=== PATIENT | female | born 1955 | race Caucasian/White ===

== ENCOUNTER → 2017-07-14 | Outpatient (CLI) | payer OTHER | LOC: FIMAGING 07:54 | PROVIDERS: ATTEND Obstetrics & Gynecology Gynecology | DX: Z12.31 Encounter for screening mammogram for malignant neoplasm of breast (principal) | CPT/HCPCS: G0202 ==

== ENCOUNTER → 2017-09-24 | Outpatient (CLI) | payer OTHER | LOC: FIMAGING 08:51 | PROVIDERS: ATTEND Physical Medicine & Rehabilitation | DX: Z13.820 Encounter for screening for osteoporosis (principal); M85.89 Other specified disorders of bone density and structure, multiple sites ==

== ENCOUNTER → 2018-09-30 | Outpatient (CLI) | payer OTHER | LOC: FIMAGING 15:00 | PROVIDERS: ATTEND Obstetrics & Gynecology Gynecology | DX: Z12.31 Encounter for screening mammogram for malignant neoplasm of breast (principal) ==

== ENCOUNTER → 2018-10-14 | Outpatient (CLI) | payer OTHER | LOC: FIMAGING 12:53 | PROVIDERS: ATTEND Physician Assistant Medical | DX: N63.23 Unspecified lump in the left breast, lower outer quadrant (principal) ==

== ENCOUNTER → 2018-11-02 | Day surgery (SDC) | payer OTHER ==
[~2018-11-02] MED LIST: BUPIVACAINE 0.5% 30 ML SDV ONE; LIDOCAINE 1% 300 MG/30 ML SDV ONE; THROMBIN (BOVINE) 5,000 UNIT VIAL TP ONE
== END | disposition home or self-care (01) ==
LOC: FIMAGING 07:17
PROVIDERS: ATTEND Physician Assistant Medical
DX: D24.1 Benign neoplasm of right breast (principal); N60.81 Other benign mammary dysplasias of right breast

== ENCOUNTER 2018-12-06 06:05 | Day surgery (SDC) | payer OTHER ==
--- NOTE | 2018-12-06 06:01 | POSTANESTH ---
Post Anesthetic Evaluation Cardiovascular Status: Normal, Stable, Tx Over/Under Hydration Respiratory Status: Normal, Stable Complications Possibly Related to Anesthesia: None Noted
--- NOTE | 2018-12-06 06:03 | PDANEPAE ---
ANE History of Present Illness 63 yo female with reported esophageal mass on CT scan, but no imaging results available in [facility]. ANE Past Medical History - Cardiovascular History Hx Hypertension: No Hx Arrhythmias: No Hx Chest Pain: No Hx Coronary Artery / Peripheral Vascular Disease: No Hx CHF / Valvular Disease: No Hx Palpitations: No Cardiovascular History Comment: Pt has elevated BP today. States she is nervous , and that usually she has low BP. - Pulmonary History Hx COPD: No Hx Asthma/Reactive Airway Disease: No Hx Recent Upper Respiratory Infection: No Hx Oxygen in Use at Home: No Hx Sleep Apnea: No Sleep Apnea Screening Result - Last Documented: Negative - Neurologic History Hx Cerebrovascular Accident: No Hx Seizures: No Hx Dementia: No Neurologic History Comment: chronic back pain s/p cervical and lumbar spinal surgeries - Endocrine History Hx Diabetes: No Hypothyroid: No Hyperthyroid: No Obesity: mild - Renal History Hx Renal Disorders: No - Liver History Hx Hepatic Disorders: No - Neurological & Psychiatric Hx Hx Neurological and Psychiatric Disorders: Yes Neurological / Psychiatric History Comment: chronic back pain - pt does not take prescription meds other than Celebrex. Pt does use some non-prescription pharmaceuticals to manage the pain, but will not discuss what they are or how much she uses. - Cancer History Hx Cancer: No - Congenital Disorder History Hx Congenital Disorders: Yes Congenital History Comment: SKIN - GI History Hx Gastrointestinal Disorders: Yes Gastrointestinal History Comment: RECENT LUNG CT SHOWED ESOPHAGEAL TUMOR. HX OF COLON POLYPS - Other Health History Other Health History: CERVICAL STENOSIS. LT HAND SPASMS - Chronic Pain History Chronic Pain: Yes (CHRONIC NECK) - Surgical History Prior Surgeries: CERVICAL LAMINECTOMY 1995. LUMBAR FUSION. LAMINECTOMY ANE Review of Systems Review of Systems: - Exercise capacity METS (RN): 4 METS - Systems Constitutional: Reports: no symptoms Respiratory: Reports: no symptoms Gastrointestinal: Reports: no symptoms Muscolosketal: Reports: back pain, neck pain ANE Patient History - Allergies Allergies/Adverse Reactions: clarithromycin [From Biaxin] Allergy (Verified 12/02/18 14:34) RASH/THRUSH - Home Medications Home Medications: Celebrex PRN 12/02/18 [Last Taken 11/29/18] Herbals/Supplements -Info Only DAILY 12/02/18 [Last Taken 11/29/18] - NPO status NPO Status: no food or drink >8 hours - Anes Hx Anes Hx: awareness under anesthesia Hx Anesthesia Complications (with details): pt states she woke up during a lumbar surgery in 1984 while she was - Smoking Hx Smoking Status: Former smoker - Family Anes Hx Family Anes Hx: neg - N/A ANE Labs/Vital Signs - Vital Signs Vital Signs: reviewed preoperatively; see RN documention for details Height: 162.56 cm Weight: 83.915 kg ANE Physical Exam - Airway Neck exam: decreased ROM Mallampati Score: Class 2 Mouth exam: normal dental/mouth exam - Pulmonary Pulmonary: clear to auscultation - Cardiovascular Cardiovascular: regular rate and rhythym - ASA Status ASA Status: II ANE Anesthesia Plan Anesthesia Plan: MAC (Pt would like to be asleep, but also very concerned about being moved while asleep due to critical cervical stenosis that she is managing with PT) Total IV Anesthesia: Yes
[2018-12-06] MEDS ORDERED: LR 1,000 ML IV ONE (06:33)
[2018-12-06] MEDS ORDERED: MIDAZOLAM 2 MG/2 ML VIAL IVP ONE (07:22)
[2018-12-06] MEDS ORDERED: LIDOCAINE 2% 5 ML SDV ONE (07:31)
[2018-12-06] MEDS ORDERED: PROPOFOL/EMULSION 500 MG/50 ML BOTTLE IV ONE (07:31)
[2018-12-06] MEDS ORDERED: fentaNYL 100 MCG/2 ML INJ ONE (07:31)
--- NOTE | 2018-12-06 07:33 | PDGENHP ---
History & Physical Chief Complaint: esophageal subepithelial lesion History of Present Illness: 63 year old female presents for evaluation of a subepithelial lesion. Pertinent Past, Social, Family History: SoHx: Former smoker. SurgHx: Cervical stenosis, lumbar laminectomy. PMHx: Chronic pain Relevant Physical Exam: HEENT: anicteric. CV: RRR +s1s2. Lungs: CTAB. Abd: soft, nt, + bs Cardiorespiratory Assessment: ASA 2
[2018-12-06] MEDS ORDERED: INDOMETHACIN 50 MG SUPP PR PRN (07:34)
[2018-12-06] MEDS ORDERED: NS 500 ML IV SCH (07:45)
[2018-12-06] MEDS ORDERED: DIAZEPAM 5 MG/ML 1 ML SYR IVP PRN (08:23)
[2018-12-06] MEDS ORDERED: ALBUTEROL 3 ML DEYVIAL IH PRN (08:23)
[2018-12-06] MEDS ORDERED: ONDANSETRON 4 MG/2 ML VIAL IVP PRN (08:23)
[2018-12-06] MEDS ORDERED: LR 500 ML IV PRN (08:23)
[2018-12-06] MEDS ORDERED: ACETAMINOPHEN 500 MG TAB PO PRN (08:23)
[2018-12-06] MEDS ORDERED: NALOXONE HCL 0.4 MG/ML INJ IVP PRN (08:23)
--- NOTE | 2018-12-06 08:57 | GIREPORT ---
Counts Include 234 Beds At [facility] Surgical Services - Endoscopy Department Patient Name: Kerri Viramontes Procedure Date: 12/06/2018 7:25 AM Patient Type: Outpatient Attending MD/ ER Physician: Obed Lopez MD Procedure: Upper EUS Indications: Submucosal tumor versus extrinsic mass found on endoscopy Patient Profile: 63 year old female presents for evaluation of a subepithelial lesion in the distal esophagus. This lesion was incidentaly found on a CT scan of the chest. Providers: Obed Lopez MD Medicines: Monitored Anesthesia Care Complications: No immediate complications. Estimated blood loss: Minimal. Description of Procedure: After obtaining informed consent, the endoscope was passed under direct vision. Throughout the procedure, the patient's blood pressure, pulse, and oxygen saturations were monitored continuously. The Endosonoscope was introduced through the mouth, and advanced to the second part of duoden um. The Endoscope was introduced through the mouth, and advanced to the sec ond part of duodenum. The Endosonoscope was introduced through the mouth, a nd advanced to the second part of duodenum. The upper EUS was accomplished without difficulty. The esophagus, stomach, and duodenum were visualize d endosonographically. The patient tolerated the procedure well. Findings: Endoscopic Finding : A single medium nodule was found in the lower third of the esophagus, 3 5 cm from the incisors. Biopsies were taken with a cold forceps for histolog y. The Z-line was irregular with esophagitis. Biopsies were taken with a c old forceps for histology. The GE junction was noted at 37mm. A small hiatal hernia was present. A few diminutive sessile polyps were found on the greater curvature of the stomach. Biopsies were taken with a cold forceps for histology. The examined duodenum was normal. Endosonographic Finding : There nodule was noted in the lower third of the esophagus. This began at 35 cm from the incisors and was extrinsic. A normal 5 esophageal layer wal l pattern was noted. It was noted ot be about 8.3 x 9.4mm. It was hypoech oic with indistinct margins. Fine needle aspiration for cytology was perfor med. Color Doppler imaging was utilized prior to needle puncture to confirm a lack of significant vascular structures within the needle path. One pas s was made with the 25 gauge needle using a transesophageal approach. A style t was used. A digital business analyst was present and performed a preliminary cytologic examination. The cellularity of the specimen was adequate. Final cytolo gy results are pending. Pancreatic parenchymal abnormalities were noted in the entire pancreas. These consisted of hyperechoic foci. There was no sign of significant endosonographic abnormality in the visualized portion of the liver. There was no sign of significant endosonographic abnormality in the com mon bile duct and in the gallbladder. Estimated Blood Loss: Estimated blood loss was minimal. Post Op Diagnosis: - Z-line irregular. Biopsied. - Small hiatal hernia. - A few gastric polyps. Biopsied. - Normal examined duodenum. - Extrinsic compression from a hypoechoic lesion was noted in the lower third of the esophagus. Benign lymph node? Fine needle aspiration perfo rmed. - Pancreatic parenchymal abnormalities consisting of hyperechoic foci w ere noted in the entire pancreas. - There was no evidence of significant pathology in the visualized port ion of the liver. Recommendation: - Discharge patient to home (with escort). - Continue present medications. - Await cytology results and await path results. - CT scan in 4 months for surveillance. - Thank you for allowing me to participate in the care of your patient. Attending Participation: I personally performed the entire procedure. Obed Lopez MD Obed Lopez MD 12/06/2018 8:57:19 AM This report has been signed electronicallyObed Lopez MD Number of Addenda: 0 Note Initiated On: 12/06/2018 7:25 AM [email or web address]
[2018-12-06 09:38] VITALS: BP 108/73
== END 2018-12-06 09:40 | disposition home or self-care (01) ==
LOC: FSGY 06:05
PROVIDERS: ATTEND Internal Medicine Gastroenterology
DX: K22.9 Disease of esophagus, unspecified (principal); K44.9 Diaphragmatic hernia without obstruction or gangrene; K31.7 Polyp of stomach and duodenum; K86.9 Disease of pancreas, unspecified; M48.02 Spinal stenosis, cervical region; Z87.891 Personal history of nicotine dependence; Z98.1 Arthrodesis status
CPT/HCPCS: 88184-90; 88185-91; J2250; J2704; J3010

== ENCOUNTER → 2018-12-28 | Outpatient (CLI) | payer OTHER | LOC: FIMAGING 12:21 | PROVIDERS: ATTEND Physical Medicine & Rehabilitation | DX: E04.2 Nontoxic multinodular goiter (principal) ==